=== PATIENT | female | born 1945 | race Caucasian/White ===

== ENCOUNTER 2021-07-20 05:37 | Emergency (ER) | payer OTHER, MEDICARE ==
[2021-07-20] MEDS ORDERED: AMLODIPINE BESYL5 MG PO (05:49)
[2021-07-20] MEDS ORDERED: ASPIRIN E.C. 8181 MG PO (05:50)
[2021-07-20 06:58] LABS: BASO # 0.01 K/mm3 (0.02-0.10); HEMOGLOBIN 15.3 g/dL (12.5-16.0); LYMPH# 0.88 K/mm3 (1.50-4.00); MEAN CELL VOLUME 89 fl (78-100); MEAN CORPUSCULAR HEMOGLOBIN 30 pg (27-31); MEAN CORPUSCULAR HGB CONC 33 g/dL (33-37); MEAN PLATELET VOLUME 10.3 fl (7.4-10.4); MONO # 0.48 K/mm3 (0.20-0.80); NEU # 3.48 K/mm3 (1.40-6.50); PLATELET COUNT 165 K/mm3 (130-400); RED BLOOD COUNT 5.19 M/mm3 (4.10-5.30); RED CELL DISTRIBUTION WIDTH 12.3 % (11.5-14.5); WHITE BLOOD COUNT 4.9 K/mm3 (4.8-10.8)
[2021-07-20 07:12] LABS: ALBUMIN 3.6 g/dL (3.4-4.8)
[2021-07-20 07:13] LABS: POTASSIUM 3.6 mmol/L (3.5-5.1)
[2021-07-20 07:14] LABS: CALCIUM 8.5 mg/dL (8.3-10.5)
[2021-07-20 07:15] LABS: TOTAL PROTEIN 6.1 g/dL (6.2-8.1)
[2021-07-20 07:17] LABS: TOTAL BILIRUBIN 0.4 mg/dL (0.2-1.2)
[2021-07-20] MEDS ORDERED: VIBRAMYCIN HYC100 MG PO (08:41)
[2021-07-20] MEDS ORDERED: DEXAMETHASONE1 MG PO (08:41)
[2021-07-20 09:59] VITALS: BP 128/66
== END 2021-07-20 09:40 | disposition home or self-care (01) ==
LOC: ED 05:37
PROVIDERS: Family Medicine
DX: U07.1 COVID-19 (principal); J12.82 Pneumonia due to coronavirus disease 2019; I10 Essential (primary) hypertension; Z79.899 Other long term (current) drug therapy
CPT/HCPCS: J7030

== ENCOUNTER 2022-03-20 14:16 | Emergency (ER) | payer OTHER, MEDICARE ==
[~2022-03-20] VITALS: Ht 167.6 cm; Wt 65.0 kg
[~2022-03-20 14:16] MED LIST: AMLODIPINE BESYL5 MG PO; ASPIRIN E.C. 8181 MG PO; DEXAMETHASONE1 MG PO; VIBRAMYCIN HYC100 MG PO
[2022-03-20 15:23] LABS: BASO # 0.01 K/mm3 (0.02-0.10); EOS # 0.13 K/mm3 (0.04-0.40); EOS % 1.6 % (1.0-5.0); HEMATOCRIT 48.7 % (37.0-47.0); HEMOGLOBIN 16.3 g/dL (12.5-16.0); LYMPH# 2.17 K/mm3 (1.50-4.00); MEAN CELL VOLUME 89 fl (78-100); MEAN CORPUSCULAR HEMOGLOBIN 30 pg (27-31); MEAN CORPUSCULAR HGB CONC 34 g/dL (33-37); MEAN PLATELET VOLUME 10.2 fl (7.4-10.4); MONO # 0.62 K/mm3 (0.20-0.80); NEU # 5.13 K/mm3 (1.40-6.50); PLATELET COUNT 250 K/mm3 (130-400); RED BLOOD COUNT 5.45 M/mm3 (4.10-5.30); WHITE BLOOD COUNT 8.1 K/mm3 (4.8-10.8)
[2022-03-20 15:33] LABS: URINE COLOR YELLOW
[2022-03-20 15:34] LABS: URINE APPEARANCE HAZY
[2022-03-20 15:35] LABS: PH-URINE 7.5 (5.0 - 8.0); URINE BILIRUBIN NEGATIVE (NEGATIVE); URINE BLOOD NEGATIVE (NEGATIVE); URINE GLUCOSE NEGATIVE (NEGATIVE); URINE KETONE NEGATIVE (NEGATIVE); URINE LEUKOCYTE ESTERASE NEGATIVE (NEGATIVE); URINE NITRATE NEGATIVE (NEGATIVE); URINE PROTEIN(semi-quant) NEGATIVE (NEGATIVE); URINE UROBILINOGEN NORMAL (NORMAL); URINE WBC 0-1 /hpf (0-3)
[2022-03-20 15:40] LABS: ALBUMIN 4.6 g/dL (3.4-4.8)
[2022-03-20 15:42] LABS: CALCIUM 9.8 mg/dL (8.3-10.5)
[2022-03-20 15:43] LABS: TOTAL PROTEIN 7.3 g/dL (6.2-8.1)
[2022-03-20 15:45] LABS: TOTAL BILIRUBIN 0.4 mg/dL (0.2-1.2)
[2022-03-20] MEDS ORDERED: ACETAMINOPHEN-H1 TA2 PO (16:22)
[2022-03-20 18:00] VITALS: BP 133/76
== END 2022-03-20 18:00 | disposition short-term general hospital (02) ==
LOC: ED 14:16
PROVIDERS: Nurse Practitioner Family
DX: R41.82 Altered mental status, unspecified (principal); Z28.310 Unvaccinated for COVID-19; Z86.16 Personal history of COVID-19

== ENCOUNTER → 2024-08-01 | Outpatient (CLI) | payer OTHER, MEDICARE ==
[~2024-08-01] MED LIST changes: +ACETAMINOPHEN-H1 TA2 PO
== END ==
LOC: RAD 09:57
DX: M17.12 Unilateral primary osteoarthritis, left knee (principal)